=== PATIENT | female | born 1985 | race Caucasian/White ===

== ENCOUNTER 2017-03-16 17:43 | Emergency (ER) | payer BC ==
[~2017-03-16] VITALS: Ht 172.7 cm; Wt 86.8 kg
[2017-03-16] MEDS ORDERED: ZOLOFT50 MG PO (18:26)
[2017-03-16 18:31] LABS: HEMOGLOBIN 12.9 g/dl (12.0-16.0); IMMATURE GRANULOCYTES 0.5 % (0.0-1.0); MEAN CELL VOLUME 91.8 fL CALC (80.0-100.0); MEAN CORPUSCULAR HGB 30.4 pG CALC (26.0-32.0); MEAN CORPUSCULAR HGB CONC 33.1 g/L CALC (32.0-36.0); NEUT# 7.36 thou/uL (2.00-7.15); RED BLOOD COUNT 4.25 mill/uL (4.20-5.60); RED CELL DISTRI WIDTH 13.2 % (11.5-15.5)
[2017-03-16 18:44] LABS: INTERNATIONAL NORMALIZED RATIO 0.9 RATIO (0.7-1.3); PROTHROMBIN TIME 10.5 SECONDS (9.0-12.5)
[2017-03-16 18:49] LABS: ALBUMIN 4.3 g/dL (3.2-5.0); ALKALINE PHOSPHATASE 114 u/l (38-126); ANION GAP 15 (6-22 (CALC)); BILIRUBIN, TOTAL 0.3 mg/dL (0.0-1.4); BUN 18 mg/dL (7-17); BUN/CREATININE RATIO 20 (12-20 (CALC)); CALCIUM 9.3 mg/dL (8.4-10.2); CARBON DIOXIDE 23 mmol/l (22-30); CHLORIDE 106 mmol/l (95-108); CREATININE 0.9 mg/dL (0.5-1.0); GFR > 60 ML/MIN (>=60 (CALC)); GFR FOR AFR.AMER. > 60 ML/MIN (>=60 (CALC)); GLUCOSE 116 mg/dL (65-105); LIPASE 106 u/l (23-300); POTASSIUM 4.1 mmol/l (3.5-5.1); SGOT/AST 36 u/l (14-36); SGPT/ALT 36 u/l (9-52); SODIUM 140 mmol/l (137-146); TOTAL PROTEIN 6.6 g/dL (6.3-8.2)
[2017-03-16 20:31] LABS: URINE BILIRUBIN - DIPSTICK NEGATIVE (NEGATIVE); URINE BLOOD DIPSTICK TRACE-LYSED (NEGATIVE); URINE COLOR YELLOW; URINE GLUCOSE - DIPSTICK NEGATIVE (NEGATIVE); URINE KETONE NEGATIVE (NEGATIVE); URINE LEUK ESTERASE NEGATIVE (NEGATIVE); URINE NITRITE - DIPSTICK NEGATIVE (Negative); URINE PH 6.5 (4.5-8.0); URINE PROTEIN - DIPSTICK NEGATIVE (NEG-TRACE); URINE UROBILINOGEN - DIPSTICK 0.2 E.U./dL (0.2)
[2017-03-16 20:34] LABS: URINE CLARITY CLEAR
[2017-03-16] MEDS ORDERED: MOTRIN400 MG PO (21:46)
[2017-03-16] MEDS ORDERED: HYDROCO/APAP1 TA9 PO (21:46)
[2017-03-16 22:29] VITALS: BP 113/56
== END 2017-03-16 22:29 | disposition home or self-care (01) | DRG 914 ==
LOC: ED 17:43
PROVIDERS: Family Medicine
DX: S09.90XA Unspecified injury of head, initial encounter (principal); F17.210 Nicotine dependence, cigarettes, uncomplicated; H53.8 Other visual disturbances; M25.561 Pain in right knee; M54.5 Low back pain; R42 Dizziness and giddiness; R11.0 Nausea; M25.562 Pain in left knee; Y93.52 Activity, horseback riding; Y92.009 Unspecified place in unspecified non-institutional (private) residence as the place of occurrence of the external cause; V80.010A Animal-rider injured by fall from or being thrown from horse in noncollision accident, initial encounter

== ENCOUNTER 2018-08-28 12:50 | Emergency (ER) | payer BC ==
[~2018-08-28] VITALS: Ht 172.7 cm; Wt 85.0 kg
[~2018-08-28 12:50] MED LIST: ALEVE PM 220-251 TAB; B121000 MCG; BACLOFEN20 MG PO; GABAPENTIN400 M2 PO; HYDROCO/APAP1 TA9 PO; MEDDOSEPAK PO; MOTRIN400 MG PO; ZOLOFT50 MG PO
[2018-08-28 14:45] VITALS: BP 128/66
== END 2018-08-28 14:45 | disposition home or self-care (01) | DRG 563 ==
LOC: ED 12:50
DX: S86.911A Strain of unspecified muscle(s) and tendon(s) at lower leg level, right leg, initial encounter (principal); W16.712A Jumping or diving from boat striking water surface causing other injury, initial encounter; Y92.828 Other wilderness area as the place of occurrence of the external cause